=== PATIENT | female | born 1995 | race Hispanic/Latino ===

== ENCOUNTER 2018-03-25 19:56 | Emergency (ER) | payer MEDICAID ==
[2018-03-25 19:57] VITALS: BMI 27.7
[2018-03-25 20:10] VITALS: BP 124/81; PULSE 100; TEMP 98.1; O2SAT 99
--- NOTE | 2018-03-25 20:43 | C.PDOC ---
History Of Present Illness 22 year old female presents to the ED complaining of left ear pain, onset this morning. She denies any fevers, cough, SOB, rash, ear discharge, or recent swimming. No h/o similar episodes. Has not taken any medication. Time Seen by Provider: 03/25/18 20:02 Chief Complaint (Nursing): ENT Problem History Per: Patient History/Exam Limitations: None Onset/Duration Of Symptoms: Hrs Current Symptoms Are (Timing): Still Present Past Medical History Reviewed: Historical Data, Nursing Documentation, Vital Signs Vital Signs: Last Vital Signs Temp 98.1 F 03/25/18 20:01 Pulse 100 H 03/25/18 20:01 Resp 20 03/25/18 21:15 BP 124/81 03/25/18 20:01 Pulse Ox 99 03/25/18 21:06 - Medical History PMH: No Chronic Diseases Surgical History: No Surg Hx - [facility] Procedures REPAIR FEMALE PERINEUM, EXTERNAL APPROACH (10/18/15) Family History: States: Unknown Family Hx - Social History Hx Tobacco Use: No Hx Alcohol Use: No Hx Substance Use: No - Immunization History Hx Tetanus Toxoid Vaccination: No Hx Influenza Vaccination: No Hx Pneumococcal Vaccination: No Review Of Systems Except As Marked, All Systems Reviewed And Found Negative. Constitutional: Negative for: Fever, Chills ENT: Positive for: Ear Pain. Negative for: Ear Discharge Respiratory: Negative for: Cough, Shortness of Breath Physical Exam - Physical Exam Appears: Well, Non-toxic, No Acute Distress Skin: Normal Color, Warm, Dry Head: Atraumatic, Normacephalic Eye(s): bilateral: Normal Inspection, EOMI Ear(s): Left: Other (tragus tenderness with exudates, no mastoid tenderness; questionable foreign body- unable to evaluate secondary to exudate, can not visualize TM, no mastoid tenderness), Right: Normal Nose: Normal Oral Mucosa: Moist Throat: Normal, No Erythema, No Exudate Neck: Normal ROM, Supple Lymphatic: Normal Exam Chest: Symmetrical Cardiovascular: Rhythm Regular Respiratory: Normal Breath Sounds, No Accessory Muscle Use Extremity: Bilateral: Atraumatic, Normal Color And Temperature Neurological/Psych: Oriented x3, Normal Speech, Other (no focal deficits) ED Course And Treatment O2 Sat by Pulse Oximetry: 99 (RA) Pulse Ox Interpretation: Normal Progress Note: Patient will be discharged home with prescriptions for Ofloxacin drops, Amoxicillin, and Motrin. Advised to take all medications as prescribed and follow up with ENT for further evaluation (referral provided) in 1-2 days. Disposition Counseled Patient/Family Regarding: Diagnosis, Need For Followup, Rx Given - Disposition Referrals: Fidel Gupta MD [Staff Provider] - Disposition: HOME/ ROUTINE Disposition Time: 20:40 Condition: STABLE Additional Instructions: Follow up with referral physician in 1-2 days without fail for further evaluation. Take medications as prescribed. Return to the emergency department at any time if symptoms persist or worsen. Prescriptions: Amoxicillin 875 mg PO BID #20 tablet Ibuprofen [Motrin] 600 mg PO Q6 PRN #20 tab PRN Reason: Pain, Mild (1-3) Ofloxacin Otic 0.3% [Floxin 0.3% Otic Soln] 10 drp OT DAILY #1 bottle Instructions: Ear Infections (Otitis Media) (DC) Forms: [facility] (Liberian) - POA Present On Arrival: None - Clinical Impression Clinical Impression: Otitis externa - PA / [employer] / Resident Statement MD/DO has reviewed & agrees with the documentation as recorded. - Scribe Statement The provider has reviewed the documentation as recorded by the Scribe (Mary Kumar) All medical record entries made by the Scribe were at my direction and personally dictated by me. I have reviewed the chart and agree that the record accurately reflects my personal performance of the history, physical exam, medical decision making, and the department course for this patient. I have also personally directed, reviewed, and agree with the discharge instructions and disposition.
[2018-03-25 21:15] VITALS: RESP 20
== END 2018-03-25 21:15 | disposition home or self-care (01) ==
LOC: C.ER 19:56
DX: H60.92 Unspecified otitis externa, left ear (principal)